=== PATIENT | female | born 1955 | race Caucasian/White ===

== ENCOUNTER 2018-10-02 14:46 | Emergency (ER) | payer SELFPAY | END 2018-10-02 15:40 | disposition left against medical advice (07) | LOC: FTE 14:46 | DX: Z53.21 Procedure and treatment not carried out due to patient leaving prior to being seen by health care provider (principal) ==

== ENCOUNTER 2018-11-24 13:02 | Emergency (ER) | payer OTHER ==
[2018-11-24] MEDS ORDERED: KETOROLAC 30 MG INJ IM (16:54)
[2018-11-24] MEDS: KETOROLAC 30 MG INJ IM (17:08)
[2018-11-24] MEDS: DEXAMETHASONE 10 MG/ML 1 ML INJ IM (17:08)
== END 2018-11-24 18:48 | disposition home or self-care (01) ==
LOC: FTE 18:48
DX: M25.531 Pain in right wrist (principal); M06.9 Rheumatoid arthritis, unspecified
CPT/HCPCS: 73110; 73110-RT; 96372; 99284-25